=== PATIENT | male | born 1990 | race Caucasian/White ===

== ENCOUNTER 2016-10-18 22:01 | Emergency (ER) | payer SELFPAY ==
--- NOTE | 2016-10-18 22:16 | EDM.PDOC ---
ED HPI ENT - General Chief Complaint: ENT Problem Stated Complaint: TOOTH PAIN Time Seen by Provider: 10/18/16 22:16 - History of Present Illness INITIAL COMMENTS - FREE TEXT/NARRATIVE: 26-year-old F. presents emergency room with worsening dental pain. The patient was having dental pain on his right he's had this repaired now his develop some dental pain on his left. He has a bad tooth on his lower jaw. This bothers him intermittently but recently has been getting worse it's been difficult for him to get the rest last couple of days. He has not noticed any fevers or chills. - Related Data Allergies/ADRs: Allergies Allergy/AdvReac Type Severity Reaction Status Date / Time No Known Allergies Allergy Verified 06/08/16 22:45 Home Meds: Home Meds Acyclovir [Zovirax 5% Oint] 5 gm .XX TID #1 tube 06/08/16 [Rx] Naproxen [Naprosyn] 500 mg PO Q12HR #20 tablet 10/18/16 [Rx] Past Medical History - Past Health History Medical/Surgical History: Denies Medical/Surgical History - Past Surgical History Musculoskeletal Surgical History: Reports: ORIF Social & Family History - Tobacco Use Smoking Status *Q: Current Every Day Smoker Years of Tobacco use: 6 Packs/Tins Daily: 1.5 - Caffeine Use Caffeine Use: Reports: None - Alcohol Use Days Per Week of Alcohol Use: 1 Number of Drinks Per Day: 2 Total Drinks Per Week: 2 - Recreational Drug Use Recreational Drug Use: No - Living Situation & Occupation Living situation: Reports: single Occupation: employed ED ROS ENT - Review of Systems Review Of Systems: See Below Constitutional: Reports: no symptoms. Denies: fever, chills HEENT: Reports: Dental pain, Ear pain (this is on the affected side) Respiratory: Reports: no symptoms Cardiovascular: Reports: No symptoms GI/Abdominal: Reports: No symptoms ED EXAM, ENT - Physical Exam Exam: See Below Exam Limited By: No limitations General Appearance: alert, mild distress (mild distress from the discomfort I suspect that's when his blood pressure is a little high in his pulse was little high) Ears: normal external exam, normal canal, hearing grossly normal, normal TMs Nose: normal inspection, normal mucousa, no blood Mouth/Throat: Normal lips, Normal oropharynx, Dental pain, Other (he has a right lower molar with significant decay surrounding erythema no drainage at this time.) Head: atraumatic, normocephalic Neck: normal inspection, supple, non-tender, full range of motion. No: lymphadenopathy (L), lymphadenopathy (R) Respiratory/Chest: no respiratory distress, lungs clear, normal breath sounds Cardiovascular: normal peripheral pulses, regular rate, rhythm Course - Vital Signs Last Recorded V/S: Last Vital Signs Temp 36.6 C 10/18/16 22:05 Pulse 106 H 10/18/16 22:05 Resp 18 10/18/16 22:05 BP 159/102 H 10/18/16 22:05 Pulse Ox 98 10/18/16 22:05 Departure - Departure Time of Disposition: 22:25 Disposition: Home, Self-Care 01 Clinical Impression: Dental caries Prescriptions: Naproxen [Naprosyn] 500 mg PO Q12HR #20 tablet Instructions: Dental Caries, [id number] Referrals: PCP,None [Primary Care Provider] - Forms: ED Department Discharge Additional Instructions: return to the emergency room with any questions or problems. Followup with a dentist as soon as you can. You then started on penicillin 500 mg take one 3 times daily #30 you will get this from the machine in the waiting room. You have been started on [place] this is a strong pain medication you will also get this out of the machine in the waiting room take one or 2 every 6 hours as needed for pain you've been dispensed #20. Allow 12 hours after using this medication before driving or returning to work.
== END 2016-10-18 22:35 | disposition home or self-care (01) ==
LOC: JD.ED 22:01
CPT/HCPCS: 99282; 99283

== ENCOUNTER 2017-01-23 20:21 | Emergency (ER) | payer BC ==
[2017-01-23 20:33] VITALS: BP 152/98
[2017-01-23] MEDS ORDERED: HYDROmorphone 1 MG/ML Syringe IM ONE (21:03)
[2017-01-23] MEDS ORDERED: Ketorolac 60 MG/2 ML SDV IM ONE (21:03)
--- NOTE | 2017-01-23 21:04 | EDM.PDOC ---
ED HPI GENERAL MEDICAL PROBLEM - General Chief Complaint: General Stated Complaint: Dental pain Time Seen by Provider: 01/23/17 20:50 Source of Information: Reports: Patient, RN Notes Reviewed History Limitations: Reports: No Limitations - History of Present Illness INITIAL COMMENTS - FREE TEXT/NARRATIVE: 26 year old male presents to the ED with lower left molar pain that started yesterday. The pain has been increasing since onset. He's had trouble with this tooth before. He went to a dentist but says they were unable to pull it. They recommended he see an forming machine upkeep mechanic helper. He has not seen an forming machine upkeep mechanic helper. He reports feeling feverish. He has mild swelling to his cheek. No foul taste or drainage. No sore throat. Tooth/Teeth Pain Score (Numeric/FACES): 10 - Related Data Allergies Allergy/AdvReac Type Severity Reaction Status Date / Time No Known Allergies Allergy Verified 01/23/17 20:31 Home Meds: Home Meds Amoxicillin/Potassium Clav [Augmentin 875-125 Tablet] 1 each PO BID #20 tablet 01/23/17 [Rx] Ibuprofen 800 mg PO TID PRN #30 tablet 01/23/17 [Rx] traMADol [Ultram] 1 - 2 tab PO Q6H PRN #20 tablet 01/23/17 [Rx] Past Medical History - Past Health History Medical/Surgical History: Denies Medical/Surgical History - Past Surgical History Musculoskeletal Surgical History: Reports: ORIF Social & Family History - Tobacco Use Smoking Status *Q: Current Every Day Smoker Years of Tobacco use: 10 Packs/Tins Daily: 1 - Caffeine Use Caffeine Use: Reports: None - Alcohol Use Days Per Week of Alcohol Use: 1 Number of Drinks Per Day: 2 Total Drinks Per Week: 2 - Recreational Drug Use Recreational Drug Use: No - Living Situation & Occupation Living situation: Reports: Single Occupation: Employed ED ROS GENERAL - Review of Systems Review Of Systems: See Below Constitutional: Reports: Fever. Denies: Chills HEENT: Reports: Dental Pain. Denies: Throat Pain ED EXAM, GENERAL - Physical Exam Exam: See Below Exam Limited By: No Limitations General Appearance: Alert, WD/WN, Moderate Distress Throat/Mouth: Normal Inspection, Normal Oropharynx, Other (dental caries to lower left molar, no gum swelling or drainage to indicate abscess. His left cheek is mildly swollen) Head: Facial Swelling Neck: Normal Inspection, Supple, Non-Tender, Full Range of Motion. No: Lymphadenopathy (L), Lymphadenopathy (R) Course - Vital Signs Last Recorded V/S: Last Vital Signs Temp 98.8 F 01/23/17 20:31 Pulse 100 01/23/17 20:31 Resp BP 152/98 H 01/23/17 20:31 Pulse Ox 97 01/23/17 20:31 - Orders/Labs/Meds Meds: Medications Discontinued Medications Generic Name Dose Route Start Last Admin Trade Name Freq PRN Reason Stop Dose Admin Hydromorphone HCl 1 mg 01/23/17 21:03 01/23/17 21:13 Dilaudid IM 01/23/17 21:04 1 mg ONETIME ONE Administration Ketorolac Tromethamine 60 mg 01/23/17 21:03 01/23/17 21:16 Toradol IM 01/23/17 21:04 60 mg ONETIME ONE Administration Departure - Departure Time of Disposition: 21:12 Disposition: Home, Self-Care 01 Condition: good Clinical Impression: Dental caries, Pain, dental - Discharge Information Prescriptions: Amoxicillin/Potassium Clav [Augmentin 875-125 Tablet] 1 each PO BID #20 tablet Ibuprofen 800 mg PO TID PRN #30 tablet PRN Reason: Pain traMADol [Ultram] 1 - 2 tab PO Q6H PRN #20 tablet PRN Reason: Pain (Moderate 4-6) Instructions: Dental Caries, [id number] Referrals: PCP,None [Primary Care Provider] - Forms: ED Department Discharge Additional Instructions: Follow-up with Electric Motor Repairman as soon as possible to have the tooth removed Ibuprofen 800mg every 8 hours as needed for mild pain Tramadol 1-2 tabs every 6 hours as needed for more severe pain Augmentin 1 tab every 12 hours for 10 days No driving today due to sedating medications given in the ED.
== END 2017-01-23 21:22 | disposition home or self-care (01) ==
LOC: JD.ED 20:21
DX: K02.9 Dental caries, unspecified (principal); F17.210 Nicotine dependence, cigarettes, uncomplicated; Z98.890 Other specified postprocedural states
CPT/HCPCS: 96372; 99283; J1170; J1885

== ENCOUNTER 2017-10-30 00:17 | Emergency (ER) | payer BC ==
[2017-10-30 00:25] VITALS: BP 148/91
--- NOTE | 2017-10-30 00:52 | EDM.PDOC ---
ED HPI GENERAL MEDICAL PROBLEM - General Chief Complaint: Back Pain or Injury Stated Complaint: back pain Time Seen by Provider: 10/30/17 00:52 - History of Present Illness INITIAL COMMENTS - FREE TEXT/NARRATIVE: 27-year-old male presents emergency room with back pain. This is been going on for the last week or so patient seen the chiropractor about 5 times he says he has [address] Early on chiropractic manipulation was helping however he's no longer getting benefit. Patient is using ibuprofen 800 mg 3 times a day this helps a little bit. Patient has not had any loss of bowel or bladder control. He does not have any shooting pains down his leg he has some tightness that extends down the back of his thigh stops above his knees. This is getting bothersome for him because he's missed about a week work with this. The patient does not have significant history of back problems. Lower Back Pain Score (Numeric/FACES): 7 - Related Data Allergies Allergy/AdvReac Type Severity Reaction Status Date / Time No Known Allergies Allergy Verified 10/30/17 00:22 Home Meds: Home Meds Cyclobenzaprine [Flexeril] 10 mg PO DAILY #12 tab 10/30/17 [Rx] Past Medical History - Past Health History Medical/Surgical History: Denies Medical/Surgical History - Past Surgical History Musculoskeletal Surgical History: Reports: ORIF Social & Family History - Tobacco Use Smoking Status *Q: Current Every Day Smoker Years of Tobacco use: 8 Packs/Tins Daily: 1 - Caffeine Use Caffeine Use: Reports: None - Alcohol Use Days Per Week of Alcohol Use: 1 Number of Drinks Per Day: 2 Total Drinks Per Week: 2 - Recreational Drug Use Recreational Drug Use: No - Living Situation & Occupation Living situation: Reports: Single Occupation: Employed ED ROS GENERAL - Review of Systems Review Of Systems: See Below Constitutional: Reports: No Symptoms Respiratory: Reports: No Symptoms Cardiovascular: Reports: No Symptoms GI/Abdominal: Reports: No Symptoms Musculoskeletal: Reports: Back Pain Neurological: Reports: No Symptoms ED EXAM,LOWER BACK PAIN/INJURY - Physical Exam Exam: See Below Exam Limited By: No Limitations General Appearance: Alert, No Apparent Distress Head: Atraumatic, Normocephalic Neck: Normal Inspection, Supple, Non-Tender, Full Range of Motion. No: Limited Range of Motion, Tender Lateral, Tender Midline Respiratory/Chest: No Respiratory Distress, Lungs Clear, Normal Breath Sounds Cardiovascular: Regular Rate, Rhythm, No Edema, No Murmur GI/Abdominal: Normal Bowel Sounds, Soft, Non-Tender Back Exam: Normal Inspection, Decreased Range of Motion, Muscle Spasm, Paraspinal Tenderness, Other (Patient has significant muscle spasm right more so than left. Straight leg raises normal). No: Full Range of Motion, CVA Tenderness (L), CVA Tenderness (R), Vertebral Tenderness Extremities: Normal Inspection, Normal Range of Motion, No Pedal Edema Course - Vital Signs Last Recorded V/S: Last Vital Signs Temp 36.9 C 10/30/17 00:23 Pulse 101 H 10/30/17 00:23 Resp 18 10/30/17 00:23 BP 148/91 H 10/30/17 00:23 Pulse Ox 99 10/30/17 00:23 - Orders/Labs/Meds Meds: Medications Discontinued Medications Generic Name Dose Route Start Last Admin Trade Name Freq PRN Reason Stop Dose Admin Cyclobenzaprine HCl 10 mg 10/30/17 01:01 10/30/17 01:06 Flexeril PO 10/30/17 01:02 10 mg ONETIME ONE Administration Ketorolac Tromethamine 30 mg 10/30/17 01:01 10/30/17 01:06 Toradol IM 10/30/17 01:02 30 mg ONETIME ONE Administration - Re-Assessments/Exams Free Text/Narrative Re-Assessment/Exam: 10/30/17 01:08 Patient has acquired a low back strain. We'll start him on Flexeril one dose tonight 3 times a day tomorrow and then nightly after that he should be able to return to work on Friday with limited lifting. Departure - Departure Time of Disposition: 01:08 Disposition: Home, Self-Care 01 Clinical Impression: Lumbar strain - Discharge Information Prescriptions: Cyclobenzaprine [Flexeril] 10 mg PO DAILY #12 tab Referrals: PCP,Unknown [Primary Care Provider] - Forms: ED Department Discharge Additional Instructions: Return to the emergency room with any questions problems worsening symptoms. Follow-up in the Hospital clinic on Friday if needed [phone]. Continue the ibuprofen 800 mg 3 times a day take with meals. You been started on Flexeril 10 mg, this is a muscle relaxant. Take one every 8 hours tomorrow, . Then one nightly thereafter. Allow 12 hours after using this medication before driving or returning to work. When he returned to work use great caution to lift correctly and limit your lifting to 20 pounds for 1 week and then gently increase lifting as tolerated.
[2017-10-30] MEDS: Cyclobenzaprine 10 MG Tab PO ONE (01:06)
[2017-10-30] MEDS: Ketorolac 30 MG/ML SDV IM ONE (01:06)
== END 2017-10-30 01:15 | disposition home or self-care (01) ==
LOC: JD.ED 00:17
DX: S39.012A Strain of muscle, fascia and tendon of lower back, initial encounter (principal); F17.210 Nicotine dependence, cigarettes, uncomplicated; X58.XXXA Exposure to other specified factors, initial encounter; Z79.899 Other long term (current) drug therapy
CPT/HCPCS: 96372; 99283; A9270; J1885

== ENCOUNTER 2020-03-04 23:17 | Emergency (ER) | payer SELFPAY ==
[2020-03-04 23:31] VITALS: BP 143/96; PULSE 85
--- NOTE | 2020-03-05 00:02 | EDM.PDOC ---
ED HPI GENERAL MEDICAL PROBLEM - General Chief Complaint: ENT Problem Stated Complaint: BROKEN MOLAR ON RIGHT SIDE Time Seen by Provider: 03/04/20 23:28 Source of Information: Reports: Patient, Significant Other (Girlfriend) History Limitations: Reports: Uncooperative (Hostile - patient did not want to answer questions) - History of Present Illness INITIAL COMMENTS - FREE TEXT/NARRATIVE: Mr. Mao is a 29-year-old man with no chronic medical problems, who, medical records indicate, has been seen in this ED on 4 previous visits for dental pain, each time noting that the patient has extensive dental decay, and each time encouraging him to see a dentist, who now presents the ED stating that he broke his right upper molar several months ago, but that he developed pain to the tooth a few hours ago. No recent fever or oral drainage. He did not take any [id number] or home remedies prior to coming to the ED. He states that he last saw a dentist about 1 year ago. Here in the ED, the patient is found to be hemodynamically stable, afebrile, saturating 97% on room air. Other than his current dental issue, the patient denies recent fever, chills, sore throat, ear pain, nasal or sinus congestion, cough, dyspnea, chest pain, palpitations, nausea, vomiting, constipation, diarrhea, abdominal pain, urinary symptoms, recent weight gain or weight loss, recent bloody bowel movements or black bowel movements, recent joint aches, headaches, or rashes. The patient does not have a PCP. Right Upper Tooth/Teeth Pain Score (Numeric/FACES): 10 - Related Data Allergies Allergy/AdvReac Type Severity Reaction Status Date / Time No Known Allergies Allergy Verified 10/30/17 00:22 Home Meds: Home Meds Cyclobenzaprine [Flexeril] 10 mg PO DAILY #12 tab 10/30/17 [Rx] Past Medical History Musculoskeletal History: Reports: Fracture (right forearm) - Past Surgical History HEENT Surgical History: Reports: Oral Surgery (dental extraction) Musculoskeletal Surgical History: Reports: ORIF (right forearm, with subsequent removal of hardware), Other (See Below) (Left foot I & D) Social & Family History - Tobacco Use Smoking Status *Q: Current Every Day Smoker Years of Tobacco use: 12 Packs/Tins Daily: 1 Packs/Tins Daily Comment: Down from 2 ppd - Caffeine Use Caffeine Use: Reports: None - Alcohol Use Alcohol Use History: Yes Alcohol Use Frequency: Socially - Recreational Drug Use Recreational Drug Use: Yes Drug Use in Last 12 Months: No Recreational Drug Type: Reports: Marijuana/Hashish (last smoked 2018) - Living Situation & Occupation Living situation: Reports: Single, Alone Occupation: Unemployed ED ROS ENT - Review of Systems Review Of Systems: Comprehensive ROS is negative, except as noted in HPI. ED EXAM, ENT - Physical Exam Exam: See Below Exam Limited By: No Limitations General Appearance: Alert, WD/WN, Mild Distress (appears uncomfortable) Eye Exam: Bilateral Eye: EOMI, Normal Inspection Ears: Normal External Exam, Normal Canal, Hearing Grossly Normal, Normal TMs Nose: Normal Inspection, Normal Mucousa, No Blood Mouth/Throat: Normal Lips, Normal Oropharynx, Other (Tooth #1 absent. Tooth #2 (the tooth of concern) with extensive shaina to the incisal surface. No associated gingival swelling or pointing. Tooth #3 with an amalgam filling. Tooth #5 with an amalgam filling. Tooth #10 with an erosive carry at the gingiva, with associated gingivitis.) Head: Atraumatic, Normocephalic Neck: Normal Inspection, Supple, Non-Tender, Full Range of Motion. No: Lymphadenopathy (L), Lymphadenopathy (R) Course - Vital Signs Last Recorded V/S: Last Vital Signs Temp 36.2 C 03/04/20 23:25 Pulse 85 03/04/20 23:25 Resp 20 03/04/20 23:25 BP 143/96 H 03/04/20 23:25 Pulse Ox 97 03/04/20 23:25 - Re-Assessments/Exams Free Text/Narrative Re-Assessment/Exam: 03/04/20 23:57 I was in the process of examining the patient, and got as far as tooth #10, befo re the patient began swearing at me. He stated that every other time he has been here, none of the other providers really examined him, they just "fuc*ing gave me pain medicine". He did not want me to examine him any further, got up, and left the ED. His girlfriend apologized profusely. I advised her to encourage the patient to see a dentist, noting that of the dental problems I was able to see, I could see that these took a long time to develop. Departure - Departure Time of Disposition: 23:59 Disposition: Eloped 07 Condition: Good Clinical Impression: Dental caries, Dentalgia - Discharge Information *PRESCRIPTION DRUG MONITORING PROGRAM REVIEWED*: Not Applicable *COPY OF PRESCRIPTION DRUG MONITORING REPORT IN PATIENT STEWART: Not Applicable Referrals: PCP,None [Primary Care Provider] - Sepsis Event Note (ED) - Evaluation Sepsis Screening Result: No Definite Risk - Focused Exam Vital Signs: Vital Signs Temp Pulse Resp BP Pulse Ox 03/04/20 23:25 36.2 C 85 20 143/96 H 97
== END 2020-03-05 00:04 | disposition left against medical advice (07) ==
LOC: JD.ED 23:17
DX: K02.9 Dental caries, unspecified (principal); F17.210 Nicotine dependence, cigarettes, uncomplicated
CPT/HCPCS: 99282